=== PATIENT | female | born 1995 | race Caucasian/White ===

== ENCOUNTER → 2020-08-09 | Outpatient (CLI) | payer SELFPAY | LOC: YCFC.O 10:45 | PROVIDERS: ATTEND Nurse Practitioner Family | DX: Z03.818 Encounter for observation for suspected exposure to other biological agents ruled out (principal); Z20.828 Contact with and (suspected) exposure to other viral communicable diseases ==

== ENCOUNTER → 2020-08-28 | Outpatient (CLI) | payer OTHER | LOC: YCFC.O 15:15 | PROVIDERS: ATTEND Family Medicine | DX: J34.89 Other specified disorders of nose and nasal sinuses (principal); Z11.59 Encounter for screening for other viral diseases ==